=== PATIENT | female | born 1995 | race Caucasian/White ===

== ENCOUNTER 2016-06-23 07:59 | Emergency (ER) | payer OTHER ==
[~2016-06-23] VITALS: Ht 152.4 cm; Wt 85.9 kg
[~2016-06-23 07:59] MED LIST: CHROMAGEN,1 CAPSULE PO; LABETALOL HCL200 MG PO; Motrin PO; PRENATAL TABLE1 EAC3 PO; Procardia XL,Adalat PO; TYLENOL EXTRA500 MG PO; Tylenol Extra Streng PO
[2016-06-23] MEDS ORDERED: NAPROXEN500 MG PO (08:40)
[2016-06-23 08:59] VITALS: BP 134/88
== END 2016-06-23 09:00 | disposition home or self-care (01) ==
LOC: EME 07:59
DX: S93.402A Sprain of unspecified ligament of left ankle, initial encounter (principal); W10.9XXA Fall (on) (from) unspecified stairs and steps, initial encounter; Y92.009 Unspecified place in unspecified non-institutional (private) residence as the place of occurrence of the external cause
CPT/HCPCS: 73610; 99281; 99284